=== PATIENT | male | born 1950 | race Caucasian/White ===

== ENCOUNTER 2019-08-27 15:56 | Emergency (ER) | payer OTHER ==
[2019-08-27 16:07] VITALS: BMI 31.7
[2019-08-27] MEDS ORDERED: SODIUM CHLORIDE 0.9% 500 ML INFUS.BAG IV ONE ×2 (17:11→19:59)
--- NOTE | 2019-08-27 17:17 | PDOC ---
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 Pt reports that he has had multiple episodes of diarrhea, with 3 today morning with watery and dark solid stool. He had a recent colonoscopy 3 weeks ago which showed a small polyp which was not cut out. Denies f/c/n/v/d/chest pain, abdominal pain, hemotochezia. 08/27/19 17:15 08/27/19 17:24 08/27/19 17:27 Associated Symptoms: reports: denies symptoms. denies: chest pain, cough, diaphoresis, fever/chills, nausea/vomiting, shortness of breath Past History - Past Medical History Allergies/Adverse Reactions: Allergies Allergy/AdvReac Type Severity Reaction Status Date / Time No Known Allergies Allergy Verified 08/27/19 16:07 Home Medications: Ambulatory Orders Apixaban [Eliquis] 5 mg PO DAILY 08/27/19 Atorvastatin Ca [Lipitor] 80 mg PO HS 08/27/19 Metoprolol Tartrate 25 mg PO DAILY 08/27/19 Omeprazole 20 mg PO DAILY #14 capsule.dr SLAUGHTER 1 tab 08/27/19 Omeprazole 40 mg PO DAILY 08/27/19 Cardiac Disorders: Yes CVA: Yes COPD: No HTN: Yes Hypercholesterolemia: Yes - Psycho Social/Smoking Cessation Hx Smoking History: Never smoked Review of Systems - Review of Systems Able to Perform ROS?: Yes Is the patient limited Czech proficient: No Constitutional: Yes: Symptoms Reported, Weight Stable. No: Chills, Fever HEENTM: Yes: Symptoms Reported. No: Blurred Vision, Ear Pain Respiratory: Yes: Symptoms reported. No: Cough, Shortness of Breath, Wheezing Cardiac (ROS): Yes: Symptoms Reported. No: Chest Pain, Irregular Heart Rate, Chest Tightness ABD/GI: Yes: Symptoms Reported, Diarrhea. No: Abdominal Distended, Blood Streaked Bowels, Constipated, Rectal Bleeding, Vomiting, Abdominal cramping Musculoskeletal: Yes: Symptoms Reported. No: Back Pain Neurological: Yes: Symptoms reported. No: Headache, Numbness All Other Systems: Reviewed and Negative *Physical Exam - Vital Signs Last Vital Signs Temp Pulse Resp BP Pulse Ox 98 F 69 18 149/85 98 08/27/19 16:03 08/27/19 16:03 08/27/19 16:03 08/27/19 16:03 08/27/19 16:03 - Physical Exam General Appearance: Yes: Nourished, Appropriately Dressed HEENT: positive: EOMI, ALESSIO, Normal ENT Inspection, Pharynx Normal Neck: positive: Trachea midline, Normal Thyroid, Supple Respiratory/Chest: positive: Lungs Clear, Normal Breath Sounds. negative: Crackles, Wheezing Cardiovascular: positive: Regular Rhythm, Regular Rate, S1, S2. negative: Murmur, Gallop/S3, Gallop/S4 Vascular Pulses: Dorsalis-Pedis (R): 2+, Doralis-Pedis (L): 2+ Gastrointestinal/Abdominal: positive: Normal Bowel Sounds, Soft. negative: Guarding, Tenderness, Hepatomegaly Neurologic: positive: Fully Oriented, Alert, Normal Mood/Affect ED Treatment Course - LABORATORY CBC & Chemistry Diagram: 08/27/19 17:23 08/27/19 17:23 Medical Decision Making - Medical Decision Making 69 y/o F, pmh of CVAx2 2016 and 2017 respectively w/ left sided residual weakness on Eliquis, Pacemaker, HTN, GERD, HLD, presents to the ED c/o of black colored diarrhea and weakness of 2 day duration #Diarrhea and weakness CBC, CMP EKG PRICE w/ SOBT 08/27/19 17:27 Discharge - Discharge Information Problems reviewed: Yes Clinical Impression/Diagnosis: Diarrhea Qualifiers: Diarrhea type: unspecified type Qualified Code(s): R19.7 - Diarrhea, unspecified Condition: Improved Disposition: HOME - Admission No - Additional Discharge Information Prescriptions: Omeprazole 20 mg PO DAILY #14 capsule.dr SLAUGHTER 1 tab - Follow up/Referral Referrals: Richard Ortega MD [Staff Physician] - ON STAFF,NOT [Primary Care Provider] - - Patient Discharge Instructions Patient Printed Discharge Instructions: DI for Diarrhea and Traveler's Diarrhea -- Adult Additional Instructions: You were seen in the emergency room for black colored diarrhea While in the emergency room, we evaluated you with lab work, blood work, and monitored you. We found that your symptoms were likely due to the Peptobismol you had taken. This is a common cause of dark colored stool. Your CT was notable for chronic inflammation of the gallbladder but no evidence of pancreatitis. You will need an outpatient ultrasound. You will need to follow up with your Gastro-enterologist within 1 week. Please follow up with your primary care physician in 1 week Return to the emergency room if you experiencing worsening of your symptoms, weakness, blood in your stool, abdominal pain or worsening of you condition. - Post Discharge Activity
[2019-08-27] MEDS ORDERED: MAG HYDROX/AL HYDROX/SIMETH 30 ML UNIT-DOSE CUP PO ONE (17:38)
--- NOTE | 2019-08-27 17:41 | PDOC ---
Documentation entered by Cynthia Lane SCRIBE, acting as scribe for Laxmi Watson MD. Laxmi Watson MD: This documentation has been prepared by the scribe, Cynthia Lane SCRIBE, under my direction and personally reviewed by me in its entirety. I confirm that the documentation accurately reflects all work, treatment, procedures, and medical decision making performed by me. Attending Attestation - Resident Resident Name: Garcia Watson - ED Attending Attestation I have performed the following: I have examined & evaluated the patient, The case was reviewed & discussed with the resident, I agree w/resident's findings & plan, Exceptions are as noted - HPI HPI: 08/27/19 18:05 The patient is a 69 year old male with significant past medical history of x2 CVA on Eliquis (2017 and in 2018 w/ L sided very mild weakness) pacemaker, GERD , HTN, and HLD who presents to the ED with weakness, watery diarrhea and foreign stool, black in color for x2 days. As per patient he started to feel weak and tired once his diarrhea started. Patient endorses x5 episodes of diarrhea NBNB 2 yesterday and 3 today. Patient states that he has never had these symptoms before and took pepto bismol with no relief. As per patient, he was seen by GI x3 weeks ago at the [facility] and had his colonoscopy done, a small polyp was shown but not removed. The patient denies any abdominal pain or hematochezia. Denies any chest pain, shortness of breath, fevers, chills, headache, and dizziness. Denies dysuria, frequency, urgency and hematuria. Allergies: NKA PCP: [facility], Not on Staff - Physicial Exam PE: 08/27/19 19:48 Well-nourished well-developed 69-year-old male in no acute distress at this time Head is normocephalic atraumatic Eyes pupils are equal reactive to light and accommodation extraocular muscles intact Lungs no wheezing, no crackles CVS regular rate and rhythm S1-S2 abdomen Positive epigastric tenderness Skin warm and dry Extremities full range of motion, no erythema, no pitting edema Neuro alert and oriented x3, motor strength 5 out of 5 bilaterally, no drift no ataxia - Medical Decision Making 08/27/19 18:25 CBC is normal there is no evidence of any anemia 08/27/19 19:49 Lipase is 500 08/27/19 22:36 CAT scan of the abdomen pelvis with contrast did not show any definite CAT scan evidence of pancreatic pathology Mild early acute pancreatitis may not be demonstrated on CAT scan or MRI, radiologist suggested clinical correlation Moderate gallbladder contraction is noted which may be physiologic. 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
[2019-08-27 17:46] LABS: BASO % 1.3 % (0-2.0); EOS % 1.8 % (0-4.5); HEMATOCRIT 43.4 % (35.4-49); HEMOGLOBIN 14.1 GM/dL (11.7-16.9); LYMPH % 40.3 % (8-40); MCH 28.8 pg (25.7-33.7); MCHC 32.5 g/dl (32.0-35.9); MEAN CELL VOLUME 88.5 fl (80-96); MEAN PLT VOLUME 7.8 fl (7.5-11.1); MONO % 12.8 % (3.8-10.2); NEUT % 43.8 % (42.8-82.8); PLATELET COUNT 175 K/MM3 (134-434); RDW 13.3 % (11.9-15.9); WHITE BLOOD COUNT 5.4 K/mm3 (4.0-10.0)
[2019-08-27] MEDS ORDERED: MAG HYDROX/AL HYDROX/SIMETH 30 ML UNIT-DOSE CUP ONE (17:55)
[2019-08-27 18:25] LABS: ALBUMIN 3.9 g/dl (3.4-5.0); ALK PHOS 75 U/L (45-117); ANION GAP 5 MMOL/L (8-16); BILIRUBIN,TOTAL 0.5 mg/dL (0.2-1); BLOOD UREA NITROGEN 18.7 mg/dL (7-18); CALCIUM 8.5 mg/dL (8.5-10.1); CHLORIDE 107 mmol/L (98-107); CO2 28 mmol/L (21-32); CREATININE 0.8 mg/dL (0.55-1.3); GLUCOSE,RANDOM 98 mg/dL (74-106); POTASSIUM 4.3 mmol/L (3.5-5.1); SGOT/AST 28 U/L (15-37); SGPT/ALT 26 U/L (13-61); SODIUM 140 mmol/L (136-145)
[2019-08-27 19:23] LABS: LIPASE 589 U/L (73-393)
--- NOTE | 2019-08-27 22:47 | PDOC ---
*Physical Exam - Vital Signs Last Vital Signs Temp Pulse Resp BP Pulse Ox 97.9 F 59 L 12 142/81 97 08/27/19 18:38 08/27/19 18:38 08/27/19 18:38 08/27/19 18:38 08/27/19 18:38 ED Treatment Course - LABORATORY CBC & Chemistry Diagram: 08/27/19 17:23 08/27/19 17:23 - ADDITIONAL ORDERS Additional order review: Laboratory Results 08/27/19 17:23 Sodium 140 Potassium 4.3 Chloride 107 Carbon Dioxide 28 Anion Gap 5 L BUN 18.7 H Creatinine 0.8 Est GFR (CKD-EPI)AfAm 105.64 Est GFR (CKD-EPI)NonAf 91.15 Random Glucose 98 Calcium 8.5 Total Bilirubin 0.5 AST 28 ALT 26 Alkaline Phosphatase 75 Creatine Kinase 138 Troponin I < 0.02 Total Protein 7.0 Albumin 3.9 Lipase 589 H 08/27/19 17:23 RBC 4.90 MCV 88.5 MCHC 32.5 RDW 13.3 MPV 7.8 Neutrophils % 43.8 Lymphocytes % 40.3 H Monocytes % 12.8 H Eosinophils % 1.8 Basophils % 1.3 - RADIOLOGY Radiograph Interpretation: CT/ABDOMEN & PELVIS CT WITH CONTR Impression: There is no definite CT evidence of pancreatic pathology. Mild/early acute pancreatitis may not be demonstrable on CT or MRI. Clinical/laboratory correlation is suggested. Moderate gallbladder contraction is noted which may be physiologic in nature versus secondary to chronic cholecystitis. If clinically indicated sonographic evaluation with optimal preparative fasting may be performed. A nonspecific 0.5 cm right hepatic lobe hypodense focus is seen. Correlation with 2 month follow-up contrast enhanced CT or MRI is suggested to evaluate stability. 08/27/19 22:43 - Medications Given in the ED: ED Medications Discontinued Medications Generic Name Dose Route Start Last Admin Trade Name Freq PRN Reason Stop Dose Admin Al Hydroxide/Mg Hydroxide 30 ml 08/27/19 17:38 08/27/19 17:58 Mylanta Oral Suspension - PO 08/27/19 17:39 30 ml ONCE ONE Administration Sodium Chloride 1,000 ml 08/27/19 17:11 08/27/19 17:35 Normal Saline - IV 08/27/19 17:12 1,000 ml ONCE ONE Administration Sodium Chloride 1,000 ml 08/27/19 19:59 08/27/19 20:14 Normal Saline - IV 08/27/19 20:00 1,000 ml ONCE ONE Administration Medical Decision Making - Medical Decision Making Pt received as sign out, noted to have elevated Lipase CT w/o evidence of pancreatitis Gallbladder pathology noted and discussed need to f/u US with pt Plan for D/C w/ PCP f/u Discharge instructions and return precautions given Patient in agreement and verbalized understanding Dispo: Home 08/27/19 22:44 Discharge - Discharge Information Problems reviewed: Yes Clinical Impression/Diagnosis: Diarrhea Qualifiers: Diarrhea type: unspecified type Qualified Code(s): R19.7 - Diarrhea, unspecified Condition: Improved Disposition: HOME - Admission No - Additional Discharge Information Prescriptions: Omeprazole 20 mg PO DAILY #14 capsule.dr SLAUGHTER 1 tab - Follow up/Referral Referrals: ON STAFF,NOT [Primary Care Provider] - Richard Ortega MD [Staff Physician] - - Patient Discharge Instructions Patient Printed Discharge Instructions: DI for Diarrhea and Traveler's Diarrhea -- Adult Additional Instructions: You were seen in the emergency room for black colored diarrhea While in the emergency room, we evaluated you with lab work, blood work, and monitored you. We found that your symptoms were likely due to the Peptobismol you had taken. This is a common cause of dark colored stool. Your CT was notable for chronic inflammation of the gallbladder but no evidence of pancreatitis. You will need an outpatient ultrasound. You will need to follow up with your Gastro-enterologist within 1 week. Please follow up with your primary care physician in 1 week Return to the emergency room if you experiencing worsening of your symptoms, weakness, blood in your stool, abdominal pain or worsening of you condition. - Post Discharge Activity
[2019-08-27 22:59] VITALS: BP 136/78; PULSE 78; TEMP 98.5
--- NOTE | 2019-08-28 11:35 | EKG ---
Test Reason : Blood Pressure : / mmHG Vent. Rate : 060 BPM Atrial Rate : 060 BPM P-R Int : 246 ms QRS Dur : 076 ms QT Int : 420 ms P-R-T Axes : -05 -14 016 degrees QTc Int : 420 ms Atrial-paced rhythm with prolonged AV conduction ABNORMAL ECG NO PREVIOUS ECGS AVAILABLE Confirmed by MAXIMILIANO GOLDEN MD ([id number]) on 08/28/2019 11:35:20 AM Referred By: Confirmed By:MAXIMILIANO GOLDEN MD
== END 2019-08-27 23:00 | disposition home or self-care (01) ==
LOC: JER 15:56
DX: R19.7 Diarrhea, unspecified (principal); I25.10 Atherosclerotic heart disease of native coronary artery without angina pectoris; I10 Essential (primary) hypertension; E78.5 Hyperlipidemia, unspecified; K21.9 Gastro-esophageal reflux disease without esophagitis; I69.854 Hemiplegia and hemiparesis following other cerebrovascular disease affecting left non-dominant side; Z79.01 Long term (current) use of anticoagulants; Z95.0 Presence of cardiac pacemaker
CPT/HCPCS: 36415; 74177-TC; 80053; 82550; 83690; 84484; 85025; 93005; 93010; 99283-25; Q9967